=== PATIENT | female | born 1990 | race Hispanic/Latino ===

== ENCOUNTER 2017-08-28 12:47 | Day surgery (SDC) | payer OTHER ==
[2017-08-28 13:29] VITALS: BMI 24.0
[2017-08-28 13:59] LABS: Bilirubin Negative (Negative); Blood, Urine Negative (Negative); Clarity CLEAR (Clear); Glucose, Urine (Dipstick) Negative (Negative); Leukocyte Negative (Negative); Nitrite Negative (Negative); Protein, Urine (Dipstick) Negative (Neg-Trace)
[2017-08-28 14:03] LABS: Bacteria/HPF None Seen HPF (None Seen); Hyaline Casts/LPF 4-6 HYALINE CAST LPF (0-3 Hyaline); Pathc Cast-AUWi Flag 1.49 (0-2.49); RBC/HPF None Seen HPF (0-3); Squamous Epithelial 0-3 HPF (0-3); WBC/HPF 0-3 HPF (0-3)
[2017-08-28 14:20] LABS: Fetal Fibronectin Negative (Negative)
[2017-08-28 14:21] LABS: FFN Internal QC Analyzer PASS (PASS); FFN Internal QC Cassette PASS (PASS)
--- NOTE | 2017-08-28 15:35 | PRG ---
DATE OF SERVICE: 08/28/2017 TIME OF SERVICE: 1500 PRESENTING COMPLAINT: Spotting at 27 weeks' gestation. HISTORY OF PRESENT ILLNESS: Ms. Ochoa is a 27-year-old 3, para 2 at 27 weeks, she sees Dr. Jessenia Gutierrez. She has a history of labor with her first and receives weekly Ma yolande. She reports a small amount of spotting on her underwear. No contractions, no rupture of membr anes, active fetus. NEONATAL CRITICAL CARE NURSE HISTORY: for first at 32 weeks' gestation in breech presentation, active labor. Second , the patient received [place] for the entire and had a term repeat . PAST MEDICAL HISTORY: Denies. PAST SURGICAL HISTORY: Denies. ALLERGIES: Denies. MEDICATIONS: vitamins and [place]. ALLERGIES: None. SOCIAL HISTORY: Denies tobacco, alcohol, or drug abuse. FAMILY HISTORY: Noncontributory. REVIEW OF SYSTEMS: Noncontributory. PHYSICAL EXAMINATION: GENERAL: female. VITAL SIGNS: Body temperature 97.8, respirations 18, blood pressure 122/72. HEENT: Within normal limits. LUNGS: Clear to auscultation bilaterally. HEART: Regular rhythm. ABDOMEN: Soft, nontender, no rebound, no guarding. No palpable contractions. Fundal height is 27 c m. FHTs 130s to 140s. GENITOURINARY: Vulva without lesions. Vagina without discharge. Cervix is closed, long, high. EXTREMITIES: Without clubbing, cyanosis or edema. LABORATORY DATA: Fem cath UA is negative. fibronectin is negative. ASSESSMENT: A small amount of spotting at 27 weeks' gestation. No evidence of labor or cerv ical change. PLAN: Reassurance. The patient to keep scheduled followup and continue [place].
== END 2017-08-28 15:18 | disposition home or self-care (01) ==
LOC: EEVIPCON 12:47 → L&D/OP 12:47
PROVIDERS: ATTEND Student in an Organized Health Care Education/Training Program
DX: O26.852 Spotting complicating pregnancy, second trimester (principal); Z3A.27 27 weeks gestation of pregnancy; Z79.899 Other long term (current) drug therapy; Z98.891 History of uterine scar from previous surgery; Z87.51 Personal history of pre-term labor
CPT/HCPCS: 81001; 82731; 99283; A4353

== ENCOUNTER 2017-11-22 09:11 | Inpatient (IN) | payer OTHER ==
[2017-11-22] MEDS ORDERED: Lactated Ringer's 1,000 ML IV SCH (10:05)
[2017-11-22] MEDS ORDERED: Bicitra 30 ML UDCUP PO SCH (10:05)
[2017-11-22] MEDS ORDERED: Ondansetron HCl/PF 4 MG/2 ML Vial IVP PRN ×3 (10:05→12:22)
[2017-11-22] MEDS ORDERED: Promethazine HCl 25 MG/ML VIAL IM PRN ×2 (10:05→12:22)
[2017-11-22] MEDS ORDERED: CEFAZOLIN/Water 2 GM/20 ML SYRINGE SLOW IVP SCH (10:05)
[2017-11-22 10:18] LABS: Hemoglobin 11.7 g/dL (12.0-16.0); Mean Corpuscular HGB CONC 33.5 g/dL (32.0-36.0); Mean Corpuscular Hemoglobin 25.2 pg (27.0-31.0); Mean Corpuscular Volume 75.2 fl (81.0-99.0); Mean Platelet Volume 7.9 fL (7.4-10.4); Platelet Count 275 thou/uL (130-400); RBC Distribution Width 14.2 % (11.5-14.5); Red Blood Cell (RBC) Count 4.64 mill/uL (4.20-5.40)
[2017-11-22 10:26] VITALS: BMI 27.6
[2017-11-22 11:02] LABS: Syphilis Antibody Nonreactive (Nonreactive); Syphilis Antibody Index 0.03 S/CO (<1.00 Non-Reactive)
[2017-11-22 11:03] LABS: HBSAg Index 0.19 S/CO (0-0.99); Hep B Surf Ag Non-Reactive S/CO (NonReactive)
--- NOTE | 2017-11-22 11:03 | PDOC.LDHP ---
Labor and Delivery H&P Chief complaint: scheduled section HPI: 27yo at 39w3d by LMP for repeat CS. No complaints. Current gestational age (weeks): 39 Due date: 11/26/17 Dating criteria: last menstrual period Grav: 4 Para: 2 OB History Details: h/o SPTB at 33 wk, s/p 17OHP this Current complications: none Abnormal US findings: No Past Medical History: denies Current medications: pre-herbert vitamins Previous surgical history: low tranverse CS (x2) Allergies/Adverse Reactions: Allergies Allergy/AdvReac Type Severity Reaction Status Date / Time No Allergy Information Allergy Verified 08/28/17 13:15 Available Social history: none - Physical Exam Vital signs reviewed and normal: yes General: NAD Heart: RRR Lungs: CTAB Abdomen: gravid Extremeties: no edema FHT: category 1 - OB Labs RH: positive Antibody Screen: negative HIV: negative RPR: negative HEPSAg: negative 1 hour GCT: negative GBS: negative Rubella: immune - Assessment L&D Assessment: scheduled repeat section - Plan Plan: admit to L&D, to OR for section, informed consent obtained, anesthesia consult for pain management
[2017-11-22] MEDS ORDERED: Morphine PF 1 MG/ML SYR ONE (11:53)
[2017-11-22] MEDS ORDERED: Bupivacaine 0.75% W/DEXTROSE 8.25% 2 ML AMP ONE (11:54)
[2017-11-22] MEDS ORDERED: Lidocaine 1% PF 5 ML VIAL ONE (11:54)
[2017-11-22] MEDS ORDERED: ePHEDrine/0.9% NaCl/PF SYRINGE 50 mg/10 ml ONE ×2 (11:54→13:42)
[2017-11-22] MEDS ORDERED: Oxytocin 10 UNITS/ML VIAL ONE (11:54)
[2017-11-22] MEDS ORDERED: Promethazine HCl 25 MG SUPP PR PRN (12:22)
[2017-11-22] MEDS ORDERED: HYDROmorphone 2 MG/ML VIAL SLOW IVP PRN (12:22)
[2017-11-22] MEDS ORDERED: diphenhydrAMINE 50 MG/ML VIAL IVP PRN (12:22)
[2017-11-22] MEDS ORDERED: Meperidine HCl/PF 25 MG/ML VIAL SLOW IVP PRN (12:22)
[2017-11-22] MEDS ORDERED: Naloxone HCl 0.4 mg/ml Vial IVP PRN ×2 (12:22)
[2017-11-22] MEDS ORDERED: Naloxone HCl 0.4 mg/ml Vial IV PRN (12:22)
[2017-11-22] MEDS ORDERED: Eucerin (Mineral Oil/Petrolatum,White) 30 gm Jar TOP PRN (12:22)
[2017-11-22] MEDS ORDERED: Communication Order-Pharmacy FS SCH (12:30)
[2017-11-22] MEDS ORDERED: Ketorolac Tromethamine 30 MG/ML VIAL IVP SCH (12:30)
--- NOTE | 2017-11-22 12:59 | PDOC.OPDEL ---
OB Operative/Delivery Note Delivery Dr/Surgeon: Matt Assist: Jw Pre-Delivery Diagnosis: scheduled section Procedure/Post Delivery Dx: repeat low transverse CS Weeks gestation: 39 Anesthesia: spinal - Findings A Sex: female - 1 min: 8 - 5 min: 9 - Additional Findings/Plan Placenta delivered: spontaneous findings: low transverse hysterotomy without extension, normal uterus, normal tubes, normal ovaries, other (adherent rectus to fascia) Estimated blood loss: 800 Post delivery plan: routine recovery
--- NOTE | 2017-11-22 13:18 | OP ---
DATE OF OPERATION: 11/22/2017 PREOPERATIVE DIAGNOSES: 1. Intrauterine at 39 weeks and 3 days. 2. Prior x2, declines trial of labor. POSTOPERATIVE DIAGNOSES: 1. Intrauterine at 39 weeks and 3 days. 2. Prior x2, declines trial of labor. PROCEDURE: Repeat low transverse section via Pfannenstiel skin incision. ANESTHESIA: Spinal. ESTIMATED BLOOD LOSS: 800 mL IVF, 1700 mL crystalloid. URINE OUTPUT: 100 mL of clear urine. ATTENDING PHYSICIAN: Jessenia Gutierrez M.D. MAC OPERATOR: Rebecca Escalera M.D. COMPLICATIONS: None. PATHOLOGY: None. DRAINS: Damon catheter. FINDINGS: A female , cephalic presentation, clear amniotic fluid, Apgars of 8 and 9, weight is currently pending. Placenta spontaneously delivered, hysterotomy was hemostatic. No distention. T here were no abnormalities of the uterus, tubes or ovaries. The rectus was densely adherent to the f ascia. OPERATIVE TECHNIQUE: The patient was taken to the operating room where spinal anesthesia was obtaine d without difficulty. The patient was prepped and draped in a sterile fashion in the dorsal supine p osition with a leftward tilt. After ensuring adequacy of anesthesia, a Pfannenstiel skin incision wa s made and carried down to the underlying subcutaneous tissue with the knife. The fascia was nicked in the midline with a knife and carried laterally with the Hopkins scissors. The superior aspect of the fascia was tented with 2 Kochers and carefully dissected off the rectus muscle noting the adherent a reas to be very dense and the peritoneum was entered into during this process and there were no adhes ions to the backside of the midline and adhesion to the fascia and this was taken up where visualizat ion was adequate. The inferior aspect of the fascia was tented with 2 Kochers and dissected off the rectus with the Hopkins scissors. The rectus was then manually retracted. The Viktor O retractor was p laced. The lower uterine segment was incised in a transverse fashion and extended with the Enrique whitaker uver. The infant's head was brought to the hysterotomy and delivered with fundal pressure followed b y the body. The infant was vigorous and delayed cord clamping x1 minute was performed. Infant was b ulb suctioned. Cord was clamped and infant handed to awaiting gomez staff. The placenta was allowed t o spontaneously deliver. The uterus was exteriorized, cleared of all clots and debris. Posterior cu l-de-sac was lapped out. The uterus was placed back into the abdomen. The hysterotomy edges were gr asped with a ring forceps. Hysterotomy was then closed in a running locking fashion with #1 Monocryl . A second suture was used to come from the other side again noting excellent hemostasis and reappro ximation. The pelvis was then irrigated copiously and suctioned. Hemostasis was noted of the hyster otomy. The Viktor O retractor was removed. The rectus muscles were examined and several bleeding ar eas were cauterized with hemostasis noted. The fascia was reapproximated with an 0 PDS x2 sutures wi th excellent reapproximation. The subcutaneous tissue was irrigated and cauterized of any bleeders a nd reapproximated with a 2-0 plain gut in a running fashion. Skin was closed with a 4-0 Monocryl in a subcuticular fashion. Dermabond was applied as well as pressure dressing. The patient tolerated p rocedure well. Sponge and needle counts are correct x2. The patient was taken to recovery room in s table condition. Patient received Ancef 2 grams prior to the procedure.
[2017-11-22] MEDS ORDERED: Ketorolac Tromethamine 30 MG/ML VIAL ONE (13:39)
[2017-11-22] MEDS: Ketorolac Tromethamine 30 MG/ML VIAL IVP PRN ×2 (13:42→20:58)
[2017-11-22] MEDS ORDERED: Bisacodyl 10 MG SUPP PR PRN (13:43)
[2017-11-22] MEDS ORDERED: Lanolin Ointment 7 GM TUBE TOP PRN (13:43)
[2017-11-22] MEDS ORDERED: diphenhydrAMINE 25 MG CAP PO PRN (13:43)
[2017-11-22] MEDS ORDERED: Acetaminophen 325 MG TAB PO PRN (13:43)
[2017-11-22] MEDS ORDERED: NS / Oxytocin 40 units/1000ml 1,000 ML IV SCH (13:43)
[2017-11-22] MEDS ORDERED: Adacel (T-DAP) 0.5 ML VIAL IM ONE (13:43)
[2017-11-22] MEDS: Simethicone Chewable 80 MG TAB PO PRN (20:59)
[2017-11-22] MEDS: Docusate Calcium (SURFAK) 240 MG CAP PO SCH (20:59)
[2017-11-23] MEDS ORDERED: HYDROcodone/Acetaminophen 5/325 mg Tablet PO PRN (00:30)
[2017-11-23] MEDS: Ferrous Sulfate 325 MG TAB PO SCH ×3 (05:15→23:20)
[2017-11-23] MEDS: Ketorolac Tromethamine 30 MG/ML VIAL IVP PRN (05:20)
[2017-11-23 06:05] LABS: Hemoglobin 8.9 g/dL (12.0-16.0); Mean Corpuscular HGB CONC 33.6 g/dL (32.0-36.0); Mean Corpuscular Hemoglobin 25.4 pg (27.0-31.0); Mean Corpuscular Volume 75.4 fl (81.0-99.0); Mean Platelet Volume 7.1 fL (7.4-10.4); Platelet Count 229 thou/uL (130-400); RBC Distribution Width 14.2 % (11.5-14.5); Red Blood Cell (RBC) Count 3.51 mill/uL (4.20-5.40)
[2017-11-23] MEDS: Prenatal Vitamin 1 TAB PO SCH (09:23)
[2017-11-23] MEDS: Docusate Calcium (SURFAK) 240 MG CAP PO SCH ×2 (09:23→23:18)
[2017-11-23] MEDS: HYDROcodone/Acetaminophen 5/325 mg Tablet PO PRN ×2 (09:23→19:28)
[2017-11-23] MEDS: Simethicone Chewable 80 MG TAB PO PRN (09:23)
--- NOTE | 2017-11-23 09:39 | PDOC.PP ---
Post Progress Note Post Day #: 1 PO intake tolerated: yes Flatus: yes Ambulation: yes Vital Signs (12 hours) Temp Pulse Resp BP 11/23/17 04:00 97.8 F 76 18 113/67 Weight Weight 137 lb - Physical Examination General: NAD Cardiovascular: RRR Respiratory: non-labored breathing Abdominal: no distention, appropriately TTP Fundus firm & at: umb Extremities: negative homans (B) Skin: CS incision dry & intact Neurological: no gross focal deficits Psychiatric: normal affect Result Diagrams: 11/23/17 05:40 Additional Labs: Post Labs Blood Type O POSITIVE 11/22/17 09:45 Hep Bs Antigen Non-Reactive S/CO (NonReactive) 11/22/17 09:45 (1) delivery delivered Code(s): O82 - ENCOUNTER FOR DELIVERY WITHOUT INDICATION Status: Acute - Assessment/Plan POD1 from [facility] Hgb 8.9, anemia due to surgical blood loss, cont pnv and fe on d/c Routine advances, doing well Rh pos RImm Cont postop care, likely home tomorrow.
[2017-11-23] MEDS: Ibuprofen 800 MG TAB PO SCH ×2 (13:59→23:18)
[2017-11-24] MEDS: Ibuprofen 800 MG TAB PO SCH ×2 (05:46→14:34)
--- NOTE | 2017-11-24 09:39 | PDOC.PP ---
Post Progress Note Vital Signs (12 hours) Temp Pulse Resp BP 11/24/17 08:00 98.4 F 77 18 116/59 L 11/24/17 04:00 97.8 F 84 18 11/24/17 00:00 97.8 F 84 18 Weight Weight 137 lb Result Diagrams: 11/23/17 05:40 Additional Labs: Post Labs Blood Type O POSITIVE 11/22/17 09:45 Hep Bs Antigen Non-Reactive S/CO (NonReactive) 11/22/17 09:45 (1) delivery delivered Code(s): O82 - ENCOUNTER FOR DELIVERY WITHOUT INDICATION Status: Acute
[2017-11-24] MEDS: Prenatal Vitamin 1 TAB PO SCH (10:01)
[2017-11-24] MEDS: Ferrous Sulfate 325 MG TAB PO SCH (10:02)
[2017-11-24] MEDS: Docusate Calcium (SURFAK) 240 MG CAP PO SCH (10:02)
[2017-11-24 12:15] VITALS: BP 99/59; TEMP 99.2
== END 2017-11-24 15:00 | disposition home or self-care (01) | DRG 766 ==
LOC: EEVIPCON 09:11 → L&D 09:11 → 3SW 15:09
PROVIDERS: ADMIT Student in an Organized Health Care Education/Training Program; ATTEND Student in an Organized Health Care Education/Training Program
PROC: 10D00Z1 Extraction of Products of Conception, Low, Open Approach (ICD-10-PCS; principal; 2017-11-22)
DX: O34.211 Maternal care for low transverse scar from previous cesarean delivery (principal); Z37.0 Single live birth; Z3A.39 39 weeks gestation of pregnancy; O69.81X0 Labor and delivery complicated by cord around neck, without compression, not applicable or unspecified
CPT/HCPCS: 36415; 51702; 85027; 86780; 86850; 86900; 86901; 87340; 90715; J1885; J2001; J2274; J2590; J3490

== ENCOUNTER 2018-12-02 16:45 | Emergency (ER) | payer OTHER, SELFPAY ==
[2018-12-02] MEDS ORDERED: predniSONE 20 MG TAB ONE (18:43)
[2018-12-02] MEDS ORDERED: hydrOXYzine 25 MG TAB ONE (18:43)
== END 2018-12-02 18:50 | disposition home or self-care (01) ==
LOC: ERS 16:45
DX: L50.0 Allergic urticaria (principal)
CPT/HCPCS: 99283; J7512